=== PATIENT | male | born 1985 | race Caucasian/White ===

== ENCOUNTER 2016-12-31 22:24 | Emergency (ER) | payer OTHER ==
[2016-12-31 22:29] VITALS: BP 131/89
== END 2017-01-01 00:18 | disposition home or self-care (01) ==
LOC: ED 22:24
DX: S86.811A Strain of other muscle(s) and tendon(s) at lower leg level, right leg, initial encounter (principal); R03.0 Elevated blood-pressure reading, without diagnosis of hypertension; X58.XXXA Exposure to other specified factors, initial encounter; Y93.67 Activity, basketball; Y92.89 Other specified places as the place of occurrence of the external cause; Y99.8 Other external cause status

== ENCOUNTER 2018-06-04 10:47 | Emergency (ER) | payer OTHER ==
[~2018-06-04] VITALS: Ht 177.8 cm; Wt 108.5 kg
[2018-06-04 10:59] VITALS: Ht 177.8 cm; Wt 108.5 kg
[2018-06-04 11:55] VITALS: BP 114/67
== END 2018-06-04 12:32 | disposition home or self-care (01) ==
LOC: ED 10:47
DX: S20.211A Contusion of right front wall of thorax, initial encounter (principal); W10.9XXA Fall (on) (from) unspecified stairs and steps, initial encounter; Y93.89 Activity, other specified; Y92.89 Other specified places as the place of occurrence of the external cause; Y99.8 Other external cause status